=== PATIENT | male | born 1990 | race Two or more races ===

== ENCOUNTER 2024-03-18 18:10 | Inpatient (IN) | payer MEDICAID, OTHER ==
[~2024-03-18] VITALS: Ht 172.7 cm; Wt 75.7 kg
[2024-03-18 18:51] LABS: Urine Bacteria None Seen /hpf (None Seen)
[2024-03-18 19:00] LABS: Basophils # (auto) 0 10 ^3/uL (0-0.2); Basophils % (auto) 0.3 % (0.0-2.0); Eosinophils # (auto) 0 10 ^3/uL (0-0.8); Eosinophils % (auto) 0.6 % (0.0-7.0); Lymphocytes # (auto) 0.7 10 ^3/uL (0.4-5.4); Lymphocytes % (auto) 17.5 % (10.0-50.0); Mean Corpuscular Hemoglobin 30.5 pg (28.0-32.0); Mean Corpuscular Hgb Conc. 35.7 g/dL (32.0-36.0); Mean Corpuscular Volume 85.7 fL (80.0-100.0); Monocytes # (auto) 0.5 10 ^3/uL (0-1.3); Neutrophils # (auto) 2.7 10 ^3/uL (1.6-8.6); Neutrophils % (auto) 68.6 % (37.0-80.0); Nucleated Red Blood Cells % 0.2 %; Platelet Count (auto) 236 10^3/uL (140-450); Red Blood Cells 3.27 10^6/uL (4.5-5.90); Red Cell Distribution Width 14.7 % (11.8-14.3)
[2024-03-18 19:07] LABS: Urine Blood Negative /uL (Negative); Urine Clarity Turbid (Clear); Urine Color Yellow (Yellow); Urine Hyaline Cast MOD /lpf (0 - 2); Urine Mucus FEW (None Seen); Urine Protein, UAD 1+ (Negative); Urine Specific Gravity 1.023 (1.001-1.035); Urine Urobilinogen Normal (Negative); Urine WBC 23 /hpf (0 - 3)
[2024-03-18 19:36] LABS: Amphetamine Screen, Urine Neg (NEGATIVE); Barbiturate Scree,Urine Neg (NEGATIVE); Benzodiazephine Screen, Urine Neg (NEGATIVE); Cocaine Screen, Urine Neg (NEGATIVE)
[2024-03-18 19:37] LABS: Cannabinoid Screen, Urine Neg (NEGATIVE); Opiate Scree,Urine Neg (NEGATIVE); Phencyclidine Screen, Urine Neg (NEGATIVE)
[2024-03-18 19:38] LABS: Alanine Aminotransferase 56 U/L (7-40); Albumin 2.7 g/dL (3.2-4.8); Alkaline Phosphatase 83 U/L (46-116); Anion Gap 7 (5-15); Aspartate Aminotransferase 67 U/L (13-40); BUN/Creatinine Ratio 7.8 (10.0-20.0); Blood Urea Nitrogen 6 mg/dL (9-23); Calcium 7.1 mg/dL (8.7-10.4); Carbon Dioxide 28 mmol/L (20-31); Chloride 108 mmol/L (98-107); Glucose 82 mg/dL (74-106); Potassium 2.6 mmol/L (3.5-5.1); Sodium 143 mmol/L (136-145)
[2024-03-18 19:39] LABS: Bilirubin, Total 0.3 mg/dL (0.2-1.0); Total Protein 4.4 g/dL (5.7-8.2)
[2024-03-18 22:10] VITALS: RESP 12
[2024-03-19 00:01] VITALS: PULSE 98; RESP 15; O2SAT 96
[2024-03-19] MEDS: POTASSIUM CHL 20MEQ/100ML 100 ML IV SCH (00:39)
[2024-03-19] MEDS: SODIUM CHLORIDE 0.9% 1,000 ML IV SCH (04:55)
[2024-03-19] MEDS: metroNIDAZOLE 500MG/100ML 100 ML IV ONE (05:17)
[2024-03-19] MEDS: cefTRIAXone 1GM/50ML D5W 50 ML IV ONE (05:17)
[2024-03-19] MEDS: ONDANSETRON HCL 4 MG/2 ML VIAL IV PRN (05:18)
[2024-03-19] MEDS: PANTOPRAZOLE 40 MG/10 ML VIAL INJ IV ONE (05:18)
[2024-03-19 05:30] LABS: Alanine Aminotransferase 52 U/L (7-40); Albumin 2.5 g/dL (3.2-4.8); Alkaline Phosphatase 84 U/L (46-116); Anion Gap 3 (5-15); Aspartate Aminotransferase 62 U/L (13-40); Calcium 6.6 mg/dL (8.7-10.4); Carbon Dioxide 26 mmol/L (20-31); Chloride 111 mmol/L (98-107); Glucose 86 mg/dL (74-106); Potassium 2.8 mmol/L (3.5-5.1); Sodium 140 mmol/L (136-145)
[2024-03-19 05:31] LABS: Bilirubin, Total 0.3 mg/dL (0.2-1.0); Total Protein 4.2 g/dL (5.7-8.2)
[2024-03-19 05:46] LABS: BUN/Creatinine Ratio 7.7 (10.0-20.0); Blood Urea Nitrogen < 5 mg/dL (9-23)
[2024-03-19 05:47] LABS: Magnesium 0.9 mg/dL (1.6-2.6)
[2024-03-19] MEDS: MAGNESIUM SULFATE 1GM/100ML 100 ML IV SCH (06:10)
[2024-03-19] MEDS ORDERED: OMNIPAQUE 12mg/ml 500ml ORAL SOLUTION PO ONE (07:26)
[2024-03-19 07:30] VITALS: RESP 19; O2SAT 99
[2024-03-19] MEDS: POTASSIUM CHLORIDE 60 MEQ, LIDOCAINE 1% (LOCAL ANESTH.) 6 ML in SODIUM CHL 0.9% 500 ML IV ONE (07:59)
[2024-03-19 10:19] LABS: Basophils # (auto) 0 10 ^3/uL (0-0.2); Basophils % (auto) 0.3 % (0.0-2.0); Eosinophils # (auto) 0.1 10 ^3/uL (0-0.8); Eosinophils % (auto) 1.7 % (0.0-7.0); Hematocrit 35.6 % (41.0-53.0); Hemoglobin 12.2 g/dL (13.5-17.5); Lymphocytes # (auto) 0.7 10 ^3/uL (0.4-5.4); Lymphocytes % (auto) 16.9 % (10.0-50.0); Mean Corpuscular Hemoglobin 30.3 pg (28.0-32.0); Mean Corpuscular Hgb Conc. 34.3 g/dL (32.0-36.0); Mean Corpuscular Volume 88.4 fL (80.0-100.0); Monocytes # (auto) 0.6 10 ^3/uL (0-1.3); Monocytes % (auto) 13.1 % (0.0-12.0); Neutrophils # (auto) 2.9 10 ^3/uL (1.6-8.6); Nucleated Red Blood Cells % 0.2 %; Platelet Count (auto) 269 10^3/uL (140-450); Red Blood Cells 4.03 10^6/uL (4.5-5.90); Red Cell Distribution Width 14.9 % (11.8-14.3); White Blood Cell 4.3 10^3/uL (4.4-10.8)
[2024-03-19 10:33] LABS: Alanine Aminotransferase 62 U/L (7-40); Alkaline Phosphatase 96 U/L (46-116); Anion Gap 5 (5-15); Aspartate Aminotransferase 77 U/L (13-40); Bilirubin, Total 0.4 mg/dL (0.2-1.0); Calcium 7.2 mg/dL (8.7-10.4); Carbon Dioxide 25 mmol/L (20-31); Chloride 109 mmol/L (98-107); Glucose 84 mg/dL (74-106); Sodium 139 mmol/L (136-145); Total Protein 5.2 g/dL (5.7-8.2)
[2024-03-19 10:49] LABS: BUN/Creatinine Ratio 7.5 (10.0-20.0); Blood Urea Nitrogen < 5 mg/dL (9-23)
[2024-03-19] MEDS: metroNIDAZOLE 500MG/100ML 100 ML IV SCH (13:14)
[2024-03-19] MEDS: POTASSIUM EFFERVESENT TAB 25 MEQ PO ONE (14:00)
[2024-03-19 17:25] LABS: COVID19 ANTIGEN SOFIA FIA NEGATIVE (NEGATIVE)
[2024-03-19 18:34] VITALS: PULSE 110; RESP 18; O2SAT 98
[2024-03-19 19:30] VITALS: PULSE 100
[2024-03-19 21:45] VITALS: BP 131/97; PULSE 100; RESP 15; TEMP 99.6; O2SAT 97
[2024-03-19 22:38] LABS: Basophils # (auto) 0 10 ^3/uL (0-0.2); Basophils % (auto) 0.4 % (0.0-2.0); Eosinophils # (auto) 0.1 10 ^3/uL (0-0.8); Eosinophils % (auto) 1.7 % (0.0-7.0); Hematocrit 28.7 % (41.0-53.0); Lymphocytes # (auto) 0.6 10 ^3/uL (0.4-5.4); Mean Corpuscular Hemoglobin 30.1 pg (28.0-32.0); Mean Corpuscular Hgb Conc. 34.7 g/dL (32.0-36.0); Mean Corpuscular Volume 86.7 fL (80.0-100.0); Monocytes # (auto) 0.5 10 ^3/uL (0-1.3); Monocytes % (auto) 14.1 % (0.0-12.0); Neutrophils # (auto) 2.5 10 ^3/uL (1.6-8.6); Neutrophils % (auto) 67.8 % (37.0-80.0); Nucleated Red Blood Cells % 0.1 %; Platelet Count (auto) 227 10^3/uL (140-450); Red Blood Cells 3.31 10^6/uL (4.5-5.90); Red Cell Distribution Width 14.9 % (11.8-14.3); White Blood Cell 3.7 10^3/uL (4.4-10.8)
[2024-03-19 22:52] LABS: Chloride 110 mmol/L (98-107); Potassium 3.2 mmol/L (3.5-5.1); Sodium 141 mmol/L (136-145)
[2024-03-19 22:53] LABS: Anion Gap 5 (5-15); Calcium 7.3 mg/dL (8.7-10.4); Carbon Dioxide 26 mmol/L (20-31)
[2024-03-19 22:58] LABS: Glucose 106 mg/dL (74-106)
[2024-03-19 22:59] LABS: BUN/Creatinine Ratio 7.7 (10.0-20.0); Blood Urea Nitrogen < 5 mg/dL (9-23)
[2024-03-20] VITALS (12 sets, daily range): BP systolic 94–135; BP diastolic 53–107; PULSE 95–121; RESP 14–19; TEMP 97.8–101; O2SAT 95–99
[2024-03-20] MEDS: POTASSIUM EFFERVESENT TAB 25 MEQ PO ONE (01:03)
[2024-03-20] MEDS: ACETAMINOPHEN 325 MG TAB PO ONE (05:00)
[2024-03-20 05:07] LABS: Basos 0 % (Not Estab.); Eos 2 % (Not Estab.); Eos (Absolute) 0.1 x10E3/uL (0.0-0.4); Hematocrit 34.8 % (37.5-51.0); Hemoglobin 11.8 g/dL (13.0-17.7); Immature Granulocytes (Abs) 0 x10E3/uL (0.0-0.1); Lymphs 19 % (Not Estab.); Lymphs (Absolute) 0.8 x10E3/uL (0.7-3.1); MCH 30.4 pg (26.6-33.0); MCHC 33.9 g/dL (31.5-35.7); MCV 90 fL (79-97); Monocytes 11 % (Not Estab.); Monocytes (Absolute) 0.5 x10E3/uL (0.1-0.9); Neutrophils 67 % (Not Estab.); Neutrophils (Absolute) 2.9 x10E3/uL (1.4-7.0); Platelets 244 x10E3/uL (150-450); RBC 3.88 x10E6/uL (4.14-5.80); RDW 14.7 % (11.6-15.4); WBC 4.3 x10E3/uL (3.4-10.8)
[2024-03-20] MEDS: cefTRIAXone 1GM/50ML D5W 50 ML IV SCH (05:21)
[2024-03-20 09:07] LABS: % CD 4 Pos Lymph 8.5 % (30.8-58.5); % CD 8 Pos Lymph 60.3 % (12.0-35.5); Absolute CD 4 Helper 68 /uL (359-1519); CD4/CD8 Ratio 0.14 (0.92-3.72)
[2024-03-20] MEDS: CALCIUM W/VIT D (600MG/400IU) TAB PO SCH (10:25)
[2024-03-20] MEDS: PANTOPRAZOLE 40 MG/10 ML VIAL INJ IV SCH (10:25)
[2024-03-20 11:56] LABS: Basophils # (auto) 0 10 ^3/uL (0-0.2); Basophils % (auto) 0.2 % (0.0-2.0); Eosinophils # (auto) 0 10 ^3/uL (0-0.8); Eosinophils % (auto) 1.2 % (0.0-7.0); Hematocrit 30.3 % (41.0-53.0); Hemoglobin 10.7 g/dL (13.5-17.5); Lymphocytes # (auto) 0.5 10 ^3/uL (0.4-5.4); Lymphocytes % (auto) 12.3 % (10.0-50.0); Mean Corpuscular Hemoglobin 30.9 pg (28.0-32.0); Mean Corpuscular Hgb Conc. 35.4 g/dL (32.0-36.0); Mean Corpuscular Volume 87.3 fL (80.0-100.0); Monocytes # (auto) 0.5 10 ^3/uL (0-1.3); Monocytes % (auto) 12.8 % (0.0-12.0); Neutrophils # (auto) 2.9 10 ^3/uL (1.6-8.6); Neutrophils % (auto) 73.5 % (37.0-80.0); Nucleated Red Blood Cells % 0.1 %; Platelet Count (auto) 236 10^3/uL (140-450); Red Blood Cells 3.47 10^6/uL (4.5-5.90); Red Cell Distribution Width 14.7 % (11.8-14.3); White Blood Cell 3.9 10^3/uL (4.4-10.8)
[2024-03-20 12:17] LABS: Alanine Aminotransferase 48 U/L (7-40); Albumin 2.5 g/dL (3.2-4.8); Alkaline Phosphatase 90 U/L (46-116); Anion Gap 4 (5-15); Aspartate Aminotransferase 52 U/L (13-40); Bilirubin, Total 0.3 mg/dL (0.2-1.0); Calcium 7.6 mg/dL (8.7-10.4); Carbon Dioxide 28 mmol/L (20-31); Chloride 108 mmol/L (98-107); Glucose 96 mg/dL (74-106); Magnesium 1.5 mg/dL (1.6-2.6); Potassium 3.5 mmol/L (3.5-5.1); Sodium 140 mmol/L (136-145); Total Protein 4.3 g/dL (5.7-8.2)
[2024-03-20 12:19] LABS: BUN/Creatinine Ratio 7.8 (10.0-20.0); Blood Urea Nitrogen < 5 mg/dL (9-23)
[2024-03-20] MEDS: SODIUM CHLORIDE 0.9% 500 ML IV ONE (16:38)
[2024-03-20] MEDS: HYDROcodone-ACET 5/325MG TAB PO PRN (18:00)
[2024-03-20] MEDS: MAGNESIUM OXIDE 400 MG TAB PO ONE (19:15)
[2024-03-21] MEDS: ACETAMINOPHEN 500 MG TAB PO PRN (04:45)
[2024-03-21 05:00] VITALS: BP 95/55; PULSE 113; RESP 17; TEMP 99; O2SAT 92
[2024-03-21 07:16] VITALS: PULSE 108
[2024-03-21 08:15] VITALS: BP 108/77; PULSE 108; RESP 18; TEMP 98.7; O2SAT 96
[2024-03-21] MEDS: MAGNESIUM OXIDE 400 MG TAB PO SCH (09:44)
[2024-03-21 10:35] LABS: Basophils # (auto) 0 10 ^3/uL (0-0.2); Basophils % (auto) 0.2 % (0.0-2.0); Eosinophils # (auto) 0 10 ^3/uL (0-0.8); Eosinophils % (auto) 0.3 % (0.0-7.0); Hematocrit 32.8 % (41.0-53.0); Hemoglobin 11.3 g/dL (13.5-17.5); Lymphocytes # (auto) 0.3 10 ^3/uL (0.4-5.4); Lymphocytes % (auto) 8.6 % (10.0-50.0); Mean Corpuscular Hemoglobin 30.2 pg (28.0-32.0); Mean Corpuscular Hgb Conc. 34.4 g/dL (32.0-36.0); Mean Corpuscular Volume 87.9 fL (80.0-100.0); Monocytes # (auto) 0.5 10 ^3/uL (0-1.3); Monocytes % (auto) 13.4 % (0.0-12.0); Neutrophils # (auto) 3.1 10 ^3/uL (1.6-8.6); Neutrophils % (auto) 77.5 % (37.0-80.0); Nucleated Red Blood Cells % 0.1 %; Platelet Count (auto) 249 10^3/uL (140-450); Red Blood Cells 3.73 10^6/uL (4.5-5.90); Red Cell Distribution Width 15.3 % (11.8-14.3)
[2024-03-21 11:05] LABS: Alanine Aminotransferase 83 U/L (7-40); Albumin 2.7 g/dL (3.2-4.8); Alkaline Phosphatase 95 U/L (46-116); Anion Gap 5 (5-15); Aspartate Aminotransferase 94 U/L (13-40); Bilirubin, Total 0.3 mg/dL (0.2-1.0); Calcium 7.4 mg/dL (8.7-10.4); Carbon Dioxide 30 mmol/L (20-31); Chloride 102 mmol/L (98-107); Glucose 95 mg/dL (74-106); Potassium 3.1 mmol/L (3.5-5.1); Sodium 137 mmol/L (136-145); Total Protein 4.7 g/dL (5.7-8.2)
[2024-03-21 11:08] LABS: Blood Urea Nitrogen < 5 mg/dL (9-23)
[2024-03-21 12:20] VITALS: BP 89/56; PULSE 105; RESP 18; TEMP 99.8; O2SAT 97
[2024-03-21] MEDS ORDERED: SULFAMETH-TRIMETH 80/16MG-ML 10 ML in D5W 5% 250 ML IV SCH (22:00)
[2024-03-22 08:26] LABS: Hepatitis B Surface Antibody Positive (Negative)
[2024-03-22 09:01] LABS: Hepatitis C Antibody Negative (Negative)
[2024-03-23 14:06] LABS: QuantiFERON-TB Gold Plus Negative (Negative)
== END 2024-03-21 14:51 | disposition left against medical advice (07) | DRG 892 ==
LOC: EDBD 18:10 → ER 18:10 → TELE 23:20 → TELE-E-ADS 03-19 18:04 → EAST 03-20 18:49 → TELE-EAST 03-20 22:12
PROVIDERS: ADMIT Internal Medicine Geriatric Medicine; ATTEND Emergency Medicine
DX: B20 Human immunodeficiency virus [HIV] disease (principal); A41.9 Sepsis, unspecified organism; E46 Unspecified protein-calorie malnutrition; E87.6 Hypokalemia; E83.42 Hypomagnesemia; N30.00 Acute cystitis without hematuria; Z20.822 Contact with and (suspected) exposure to COVID-19; K52.9 Noninfective gastroenteritis and colitis, unspecified; K62.0 Anal polyp; Z91.199 Patient's noncompliance with other medical treatment and regimen due to unspecified reason; Z68.25 Body mass index [BMI] 25.0-25.9, adult; Z91.148 Patient's other noncompliance with medication regimen for other reason; Z83.3 Family history of diabetes mellitus
CPT/HCPCS: 36415; 70450; 71045; 74176; 80048; 80053; 80307; 81001; 82270; 82607; 83735; 83986; 84443; 84484; 85025; 85048; 86360; 86592; 86703; 86706; 86803; 87040; 87045; 87389; 87426; 87427; 87493; 87536; 93005; G0378; J2001; J2405; J2470; J3480; J3490; J7060

== ENCOUNTER 2024-04-13 08:42 | Emergency (ER) | payer MEDICAID ==
[~2024-04-13] VITALS: Ht 167.6 cm; Wt 53.2 kg
[2024-04-13 09:21] VITALS: BP 116/79; PULSE 103; RESP 18; TEMP 97.7; O2SAT 98
[2024-04-13] MEDS: ONDANSETRON ODT 4 MG TAB PO ONE (09:30)
[2024-04-13] MEDS: MAALOX PLUS or MAALOX 30 ML PO ONE (09:30)
[2024-04-13 09:51] LABS: Basophils # (auto) 0 10 ^3/uL (0-0.2); Basophils % (auto) 0.3 % (0.0-2.0); Eosinophils # (auto) 0.1 10 ^3/uL (0-0.8); Eosinophils % (auto) 2.6 % (0.0-7.0); Hematocrit 37.4 % (41.0-53.0); Hemoglobin 12.9 g/dL (13.5-17.5); Lymphocytes # (auto) 1.3 10 ^3/uL (0.4-5.4); Lymphocytes % (auto) 28.5 % (10.0-50.0); Mean Corpuscular Hemoglobin 31.5 pg (28.0-32.0); Mean Corpuscular Hgb Conc. 34.4 g/dL (32.0-36.0); Mean Corpuscular Volume 91.5 fL (80.0-100.0); Monocytes # (auto) 0.4 10 ^3/uL (0-1.3); Monocytes % (auto) 8.3 % (0.0-12.0); Neutrophils # (auto) 2.8 10 ^3/uL (1.6-8.6); Neutrophils % (auto) 60.3 % (37.0-80.0); Nucleated Red Blood Cells % 0.1 %; Platelet Count (auto) 356 10^3/uL (140-450); Red Blood Cells 4.09 10^6/uL (4.5-5.90); Red Cell Distribution Width 16.8 % (11.8-14.3); White Blood Cell 4.7 10^3/uL (4.4-10.8)
[2024-04-13 10:03] LABS: Alanine Aminotransferase 77 U/L (7-40); Albumin 4.2 g/dL (3.2-4.8); Alkaline Phosphatase 106 U/L (46-116); Anion Gap 3 (5-15); Aspartate Aminotransferase 43 U/L (13-40); BUN/Creatinine Ratio 15.4 (10.0-20.0); Blood Urea Nitrogen 12 mg/dL (9-23); Calcium 9.2 mg/dL (8.7-10.4); Carbon Dioxide 26 mmol/L (20-31); Chloride 112 mmol/L (98-107); Glucose 91 mg/dL (74-106); Potassium 4.3 mmol/L (3.5-5.1); Sodium 141 mmol/L (136-145)
[2024-04-13 10:04] LABS: Bilirubin, Total 0.3 mg/dL (0.2-1.0); Total Protein 7.5 g/dL (5.7-8.2)
[2024-04-14 07:07] LABS: Basos 0 % (Not Estab.); Eos 3 % (Not Estab.); Eos (Absolute) 0.2 x10E3/uL (0.0-0.4); Hematocrit 39.5 % (37.5-51.0); Hemoglobin 12.8 g/dL (13.0-17.7); Immature Granulocytes (Abs) 0 x10E3/uL (0.0-0.1); Lymphs 29 % (Not Estab.); Lymphs (Absolute) 1.4 x10E3/uL (0.7-3.1); MCH 30.8 pg (26.6-33.0); MCHC 32.4 g/dL (31.5-35.7); MCV 95 fL (79-97); Monocytes 9 % (Not Estab.); Monocytes (Absolute) 0.4 x10E3/uL (0.1-0.9); Neutrophils 59 % (Not Estab.); Neutrophils (Absolute) 2.8 x10E3/uL (1.4-7.0); Platelets 380 x10E3/uL (150-450); RBC 4.16 x10E6/uL (4.14-5.80); RDW 15.3 % (11.6-15.4); WBC 4.8 x10E3/uL (3.4-10.8)
[2024-04-14 12:06] LABS: % CD 4 Pos Lymph 1.5 % (30.8-58.5); % CD 8 Pos Lymph 71.4 % (12.0-35.5); Absolute CD 4 Helper 21 /uL (359-1519); CD4/CD8 Ratio 0.02 (0.92-3.72)
== END 2024-04-13 12:55 | disposition home or self-care (01) ==
LOC: ER 08:42
DX: R19.7 Diarrhea, unspecified (principal); R51.9 Headache, unspecified; R55 Syncope and collapse; Z79.899 Other long term (current) drug therapy; Z79.01 Long term (current) use of anticoagulants; Z21 Asymptomatic human immunodeficiency virus [HIV] infection status
CPT/HCPCS: 36415; 80053; 85025; 86360; 99283; Q0162

== ENCOUNTER 2024-05-11 08:46 | Emergency (ER) | payer MEDICAID ==
[~2024-05-11] VITALS: Ht 170.2 cm; Wt 54.4 kg
[2024-05-11 09:07] VITALS: BP 109/81; PULSE 104; RESP 16; O2SAT 98
== END 2024-05-11 11:01 | disposition left against medical advice (07) ==
LOC: ER 08:46
DX: R10.13 Epigastric pain (principal); R11.2 Nausea with vomiting, unspecified; R19.7 Diarrhea, unspecified; Z53.21 Procedure and treatment not carried out due to patient leaving prior to being seen by health care provider

== ENCOUNTER 2024-06-30 08:45 | Emergency (ER) | payer MEDICAID, OTHER ==
[~2024-06-30] VITALS: Ht 170.2 cm; Wt 75.0 kg
[2024-06-30 08:56] VITALS: BP 109/78; PULSE 107; RESP 20; O2SAT 100
[2024-07-01] MEDS ORDERED: CEPH500C PO (00:32)
[2024-07-01] MEDS ORDERED: IBUP-1455 PO (00:32)
[2024-07-01] MEDS ORDERED: HYDR-4902 PO (00:32)
== END 2024-06-30 11:34 | disposition left against medical advice (07) ==
LOC: ER 08:45
DX: M25.551 Pain in right hip (principal); Z53.21 Procedure and treatment not carried out due to patient leaving prior to being seen by health care provider

== ENCOUNTER 2024-06-30 20:04 | Emergency (ER) | payer OTHER ==
[~2024-06-30] VITALS: Ht 170.2 cm; Wt 59.0 kg
--- NOTE | 2024-07-01 00:28 | ED.PDOC ---
History of Present Illness HPI Comments 34 year old male presents to the ED with a chief complaint of wound check onset today. Patient states he had a R hip surgery in [place] 3 days ago and left AMA without any medication. Patient states he is currently experiencing pain and is concerned for possible infection. Past medical history of HIV. Denies fever, chest pain, shortness of breath, edema, wound discharge, nausea, vomiting, diarrhea, chills. No other symptoms or modifying factors present at this time. Chief Complaint: Wound Check Time Seen by MD: 00:18 Primary Care Provider: KAREL Reviewed Notes: Nurses Notes, Medications, Allergies Allergies: Coded Allergies: NO KNOWN ALLERGIES (Unverified , 03/18/24) Home Meds Active Scripts Cephalexin Monohydrate (Cephalexin) 500 Mg Cap, 1 CAP PO TID for 10 Days, #30 CAP Prov:ZOE BRAXTON MD 07/01/24 Hydrocodone-Acetaminophen (Hydrocodone Bitartrate/AC 5-325 mg) 1 Tab Tab, 1 TAB PO Q6HP PRN, #30 TAB prn pain Prov:ZOE BRAXTON MD 07/01/24 Ibuprofen Micronized (Ibuprofen) 800 Mg Tab, 800 MG PO Q8HPRN PRN, #30 TAB prn pain Prov:ZOE BRAXTON MD 07/01/24 Information Source: Patient Mode of Arrival: Ambulatory Severity: Moderate Timing: Days Duration: Since onset Prehospital treatment: None Past Medical History PAST MEDICAL HISTORY: HIV Surgical History: Denies all surgeries Family History Family History: Reviewed,noncontributory to illness Social History Smoker: Non-Smoker Alcohol: Denies ETOH Use Drugs: Denies Drug Use Lives In: Home Constitutional: denies: chills, diaphoresis, fatigue, fever, malaise, sweats, weakness, others EENTM: denies: blurred vision, double vision, ear bleeding, ear discharge, ear drainage, ear pain, ear ringing, eye pain, eye redness, hearing loss, mouth pain, mouth swelling, nasal discharge, nose bleeding, nose congestion, nose pain, photophobia, tearing, throat pain, throat swelling, voice changes, others Respiratory: denies: cough, hemoptysis, orthopnea, SOB at rest, shortness of breath, SOB with excertion, stridor, wheezing, others Cardiovascular: denies: chest pain, dizzy spells, diaphoresis, Dyspnea on exertion, edema, irregular heart beat, left arm pain, lightheadedness, palpitations, PND, syncope, others Gastrointestinal: denies: abdomen distended, abdominal pain, blood streaked bowels, constipated, diarrhea, dysphagia, difficulty swallowing, hematemesis, melena, nausea, poor appetite, poor fluid intake, rectal bleeding, rectal pain, vomiting, others Genitourinary: denies: burning, dysuria, flank pain, frequency, hematuria, incontinence, penile discharge, penile sore, pain, testicle pain, testicle swelling, urgency, others Neurological: denies: dizziness, fainting, headache, left sided numbness, left sided weakness, numbness, paresthesia, pre-existing deficit, right sided numbness, right sided weakness, seizure, speech problems, tingling, tremors, weakness, others Musculoskeletal: reports: others (LT hip pain ); denies: back pain, gout, joint pain, joint swelling, muscle pain, muscle stiffness, neck pain Integumetry: denies: bruises, change in color, change in hair/nails, dryness, laceration, lesions, lumps, rash, wounds, others Allergic/Immunocompromised: denies: Difficulty Healing, Frequent Infections, Hives, Itching, others Hematologic/Lymphatic: denies: anemia, blood clots, easy bleeding, easy bruising, swollen glands, others Endocrine: denies: excessive hunger, excessive sweating, excessive thirst, excessive urination, flushing, intolerance to cold, intolerance to heat, unexplained weight gain, unexplained weight loss, others Psychiatric: denies: anxiety, bipolar disorder, depression, hopeless, panic disorder, schizophrenia, sleepless, suicidal, others All Other Systems: Reviewed and Negative Physical Exam General Appearance: No Apparent Distress HEENT: Other (unremarkable) Neck: Full Range of Motion, Normal Inspection Respiratory: Lungs Clear, No Accessory Muscle Use, No Respiratory Distress, Normal Breath Sounds Cardiovascular: No Edema, No JVD, Regular Rate/Rhythm Breast Exam: Deferred Gastrointestinal: Non Tender, Soft Genitalia: Deferred Pelvic: Deferred Rectal: Deferred Extremities: Normal inspection, Normal range of motion, No pedal edema, Other (Painful range of motion right hip. No edema.) Neurologic: Alert (Oriented x4), Normal Affect, Normal Mood, Other (Moves all extremities. No gross focal deficit.) Cerebellar Function: NOT DONE Reflexes: NOT DONE Skin: Dry, Normal Color, Warm, Other (Right hip surgical wound site with heidi in place minimal erythema at proximal wound edge staple insertion site without edema, tenderness or discharge.) Lymphatic: NOT DONE Was a procedure done? Was a procedure done?: No Differential Dx Considerations may include: Uncomplicated postoperative pain, hardware displacement or infection, wound site infection, among others X-Ray, Labs, Meds, VS Vital Signs Date Time Temp Pulse Resp B/P (MAP) Pulse Ox O2 Delivery O2 Flow Rate FiO2 07/01/24 03:04 97 18 99 Room Air* 0 21 07/01/24 03:04 98.5 97 18 110/61 (77) 99 98.5 06/30/24 20:37 97.9 102 18 119/68 (85) 100 Current Medications Medications (Trade) Dose Ordered Sig/Iveth Route Start Time Stop Time Status Last Admin Ketorolac Tromethamine (Toradol Injection) 60 mg ONCE ONCE IM 07/01/24 00:30 07/01/24 00:31 DC 07/01/24 03:10 Acetaminophen/ Hydrocodone Bitart ([place] 5/325MG Tab) 2 tab ONCE ONCE PO 07/01/24 00:30 07/01/24 00:31 DC 07/01/24 03:10 PROCEDURE(s): RHIP - R HIP COMPLETE XRAY REASON: pain s/p hip surg 3 d ago ORDER NUMBER(s): [id number], ACCESSION NUMBER(s): [id number] CLINICAL INDICATION: pain s/p hip surg 3 d ago TECHNIQUE: 3 views of the right hip. Comparison: None FINDINGS/IMPRESSION: 2 transfixing screws are transfixing a right femoral neck fracture. No gross evidence of hardware complication. No additional fracture or dislocation. Soft tissues are unremarkable. X-Ray, Labs, Meds, VS Comment 34-year-old male with a history of HIV presenting complaining of right hip pain 3 days after right hip ORIF at another facility from which he left AMA. Vitals remarkable for heart rate 102 Exam remarkable for painful range of motion of the right hip. The right hip wound site appears clean, dry and intact. Minimal erythema at proximal wound edge at staple insertion site, without edema, discharge or tenderness. Right hip x-rays: FINDINGS/IMPRESSION: 2 transfixing screws are transfixing a right femoral neck fracture. No gross evidence of hardware complication. No additional fracture or dislocation. Soft tissues are unremarkable. Patient treated with the following in the ED: Toradol 60 mg IM, Austin 5/325 mg p.o.. On re-evaluation, patient states pain has improved. Vitals are stable. Right lower extremity is neurovascularly intact. Patient provided with crutches and crutch training. Advised to follow-up with the orthopedist who performed his surgery. Since the patient left AMA, he states he was not prescribed any medications. I will cover him with oral antibiotics since he has HIV and might be at risk for postoperative infection, although I do not feel he currently has evidence of infection at this time. Rx ibuprofen, Austin, Keflex Time of 1ST Reevaluation: 00:48 Reevaluation 1ST: Unchanged Patient Education/Counseling: Diagnosis, Treatment, Prognosis, Need For Follow Up Family Education/Counseling: No Family Present Departure 1 Departure Time of Disposition: 01:06 Impression: Primary Impression: Postoperative pain Disposition: 01 HOME / SELF CARE / HOMELESS Condition: Stable Additional Instructions: Your x-rays showed that your surgical hardware is in place. I have prescribed antibiotics to prevent infection, as well as pain medication. Follow-up with the orthopedist who performed your surgery in 2-3 days. e-Prescriptions Cephalexin Monohydrate (Cephalexin) 500 Mg Cap 1 CAP PO TID for 10 Days, #30 CAP Prov: ZOE BRAXTON MD 07/01/24 Hydrocodone-Acetaminophen (Hydrocodone Bitartrate/AC 5-325 mg) 1 Tab Tab 1 TAB PO Q6HP PRN, #30 TAB prn pain Prov: ZOE BRAXTON MD 07/01/24 Ibuprofen Micronized (Ibuprofen) 800 Mg Tab 800 MG PO Q8HPRN PRN, #30 TAB prn pain Prov: ZOE BRAXTON MD 07/01/24 Discharged With: Relative (Mother) Critical Care Note Critical Care Time?: No Stability Stability form required: No Heart Score Heart Score: Heart Score Response (Comments) Value History N/A 0 EKG N/A 0 Age N/A 0 Risk Factors N/A 0 Troponin N/A 0 Total 0 I personally scribed for ZOE BRAXTON MD ([email or web address]) on 07/01/24 at 00:28. Electronically submitted by Jessica Levy ([email or web address]). ZOE BRAXTON MD Jul 01, 2024 00:28
[2024-07-01] MEDS ORDERED: HYDR-4902 PO (00:32)
[2024-07-01] MEDS ORDERED: IBUP-1455 PO (00:32)
[2024-07-01] MEDS ORDERED: CEPH500C PO (00:32)
--- NOTE | 2024-07-01 00:51 | DVH ---
CLINICAL INDICATION: pain s/p hip surg 3 d ago TECHNIQUE: 3 views of the right hip. Comparison: None FINDINGS/IMPRESSION: 2 transfixing screws are transfixing a right femoral neck fracture. No gross evidence of hardware com plication. No additional fracture or dislocation. Soft tissues are unremarkable.
[2024-07-01 03:04] VITALS: BP 110/61; PULSE 97; RESP 18; TEMP 98.5; O2SAT 99
[2024-07-01] MEDS: HYDROcodone-ACET 5/325MG TAB PO ONE (03:10)
[2024-07-01] MEDS: KETOROLAC TROMETH 60MG/2ML VIAL IM ONE (03:10)
== END 2024-07-01 03:19 | disposition home or self-care (01) ==
LOC: ER 20:04
DX: G89.18 Other acute postprocedural pain (principal); M25.551 Pain in right hip; Z79.899 Other long term (current) drug therapy
CPT/HCPCS: 73502; 96372; 99283; J1885

== ENCOUNTER 2024-09-20 14:20 | Emergency (ER) | payer OTHER ==
[~2024-09-20] VITALS: Ht 170.2 cm; Wt 55.5 kg
[~2024-09-20 14:20] MED LIST: CEPH500C PO; HYDR-4902 PO; IBUP-1455 PO
[2024-09-20 14:35] VITALS: BP 132/84; PULSE 97; RESP 18; TEMP 98; O2SAT 97
--- NOTE | 2024-09-20 14:39 | ED.PDOC ---
GI ASSESSMENT HPI Comments 34 y.o male presents to the ED for a chief complaint of one episode of diarrhea yesterday. Patient describes stool as loose and brown in coloration. Patient denies any abdominal pain, fever, chills, nausea or vomiting. Patient reports previous similar incident in which he was diagnosed with an abdominal infection. Patient's last visit at this ED was on 06/2024 for hip replacement re evaluation. Patient had breakfast this morning. Patient had no episodes of diarrhea or nausea or vomiting since that one episode last night. Patient is homeless. Vitals: BP: 132/84 HR: 97 Temp: 98 F SPO2: 97% RA RR: 18 Past medical history: HIV Past surgical history: HIP replacement Allergies: Denies HPI: Poor Historian. REVIEW OF SYSTEMS: CONSTITUTIONAL: Denies acute: fever, diaphoresis, chills, generalized weakness. HEAD: Denies acute: headache, photophobia Eyes: Denies acute: Double vision, vision loss, eye pain, eye discharge. EARS: Denies acute: tinnitus, hearing loss, ear discharge, ear pain, THROAT: Denies acute: sore throat, swelling, difficulty swallowing , pain with swallowing, change in voice. NECK: Denies acute: neck pain, neck swelling, stiff neck. HEART: Denies acute : chest pain, palpitations, LUNGS: Denies acute: SOB, wheezing, cough, hemoptysis ABDOMEN: Denies acute: abdominal pain, Nausea, Vomiting, melena , hematemesis, hematochezia SKIN: Denies acute: rash, redness, lesions, itchiness. EXTREMITIES: Denies acute: calf pain, numbness, tingling, weakness, denies pain in extremity. Denies acute: Low back pain. Neuro: Denies acute: focal neurological deficit, motor or sensory focal neurological deficit, tremors, seizure like activity, confusion, dizziness, change in mental status, loss of bowel or bladder function, cauda equina like symptoms. : Denies acute: dysuria, hematuria, flank pain, increase in urinary frequency. PSYCH: Denies acute: hallucination, suicidal ideation, homicidal ideation. PHYSICAL EXAM: General: ---no-----acute distress, awake and alert. Head: normocephalic, atraumatic. Neck: supple, trachea is midline, no swelling. Throat: Normal phonation. Eyes:, no erythema, no purulent discharge, no proptosis, no icterus. Heart: regular rate, regular rhythm, no significant murmur appreciated. Lungs: no apparent respiratory distress, Able to speak in full sentences. No wheezing, no rhonchi, no crackles. No stridors Clear to auscultation bilaterally. Abdomen: non tender to palpation, non distended, soft, no guarding, no rebound, + bowel sounds. Neuro: Awake, Alert, oriented to name, self, situation, follows commands GCS=15. Speech is normal. Skin: no petechia, no purpura, no cyanosis, non-pale, not jaundice. Lower extremities: --no - Pitting edema no deformity, no focal swelling, no calf TTP. Makes eye contact. moves all four extremities. Face: no apparent facial droop. Ambulating in the ED independently. ED COURSE: Time Seen by MD: 14:30 Primary Care Provider: OOA Reviewed Notes: Nurses Notes, Allergies Allergies: Coded Allergies: NO KNOWN ALLERGIES (Unverified , 03/18/24) Home Meds Active Scripts Cephalexin Monohydrate (Cephalexin) 500 Mg Cap, 1 CAP PO TID for 10 Days, #30 CAP Prov:ZOE BRAXTON MD 07/01/24 Hydrocodone-Acetaminophen (Hydrocodone Bitartrate/AC 5-325 mg) 1 Tab Tab, 1 TAB PO Q6HP PRN, #30 TAB prn pain Prov:ZOE BRAXTON MD 07/01/24 Ibuprofen Micronized (Ibuprofen) 800 Mg Tab, 800 MG PO Q8HPRN PRN, #30 TAB prn pain Prov:ZOE BRAXTON MD 07/01/24 Information Source: Patient Past Medical History PAST MEDICAL HISTORY: HIV Surgical History: Denies all surgeries Family History Family History: Reviewed,noncontributory to illness Social History Smoker: Non-Smoker Alcohol: Denies ETOH Use Drugs: Denies Drug Use Lives In: Home Was a procedure done? Was a procedure done?: No GI differential Dx Differential Diagnosis: Diverticular disease, Electrolyte Imbalance, Food Poisoning, Viral X-Ray, Labs, Meds, VS Vital Signs Date Time Temp Pulse Resp B/P (MAP) Pulse Ox O2 Delivery O2 Flow Rate FiO2 09/20/24 14:35 98.0 97 18 132/84 (100) 97 98.0 Lab Test 09/20/24 16:01 Range/Units White Blood Count 4.3 L 4.4-10.8 10^3/uL Red Blood Count 3.99 L 4.5-5.90 10^6/uL Hemoglobin 11.4 L 13.5-17.5 g/dL Hematocrit 34.3 L 41.0-53.0 % Mean Corpuscular Volume 85.9 80.0-100.0 fL Mean Corpuscular Hemoglobin 28.5 28.0-32.0 pg Mean Corpuscular Hemoglobin Concent 33.1 32.0-36.0 g/dL Red Cell Distribution Width 16.6 H 11.8-14.3 % Platelet Count 361 140-450 10^3/uL Mean Platelet Volume 7.5 6.9-10.8 fL Neutrophils (%) (Auto) 58.0 37.0-80.0 % Lymphocytes (%) (Auto) 23.5 10.0-50.0 % Monocytes (%) (Auto) 9.6 0.0-12.0 % Eosinophils (%) (Auto) 8.6 H 0.0-7.0 % Basophils (%) (Auto) 0.3 0.0-2.0 % Neutrophils # (Auto) 2.5 1.6-8.6 10 ^3/uL Lymphocytes # (Auto) 1.0 0.4-5.4 10 ^3/uL Monocytes # (Auto) 0.4 0-1.3 10 ^3/uL Eosinophils # (Auto) 0.4 0-0.8 10 ^3/uL Basophils # (Auto) 0 0-0.2 10 ^3/uL Nucleated Red Blood Cells 0.0 % Sodium Level 142 136-145 mmol/L Potassium Level 3.9 3.5-5.1 mmol/L Chloride Level 111 H 98-107 mmol/L Carbon Dioxide Level 25 20-31 mmol/L Anion Gap 6 5-15 Blood Urea Nitrogen 20 9-23 mg/dL Creatinine 0.78 0.700-1.30 mg/dL Glomerular Filtration Rate Calc 122 >90 mL/min BUN/Creatinine Ratio 25.6 H 10.0-20.0 Serum Glucose 106 74-106 mg/dL Lactic Acid Level 1.9 0.4-2.0 mmol/L Calcium Level 8.9 8.7-10.4 mg/dL Total Bilirubin 0.3 0.2-1.0 mg/dL Aspartate Amino Transferase (AST) 63 H 13-40 U/L Alanine Aminotransferase (ALT) 88 H 7-40 U/L Alkaline Phosphatase 113 46-116 U/L Total Protein 7.4 5.7-8.2 g/dL Albumin 4.1 3.2-4.8 g/dL Microbiology Date/Time Source Procedure Growth Status 09/20/24 16:08 Stool Stool Culture - Preliminary Resulted 09/20/24 16:08 Stool Shiga Toxin I & II - Final Resulted Time of 1ST Reevaluation: 14:34 Reevaluation 1ST: Unchanged Patient Education/Counseling: Diagnosis, Treatment Family Education/Counseling: No Family Present Comments Patient eloped Patient presented with the above HPI.---diarrhea--workup was initiated. patient was found with the above mentioned diagnosis. the following medications were ordered: please refer to order lists of meds and tests obtained by myself Dr. May. Patient eloped All the reports of any imaging studies that were ordered by myself were reviewed by myself. Departure 1 Departure Time of Disposition: 20:24 Impression: Primary Impression: Diarrhea Additional Impression: Eloped from emergency department Disposition: 07 LEFT AWOL/ELOPED Condition: Other Additional Instructions: Patient eloped Discharged With: Other Critical Care Note Critical Care Time?: No I personally scribed for JOSEF MAY DO ([email or web address]) on 09/20/24 at 14:39. Electronically submitted by Nikki Mcneil ([email or web address]). I personally scribed for JOSEF MAY DO ([email or web address]) on 09/20/24 at 14:53. Electronically submitted by Nikki Mcneil ([employer]). JOSEF MAY DO Sep 20, 2024 14:39
[2024-09-20 16:24] LABS: Basophils # (auto) 0 10 ^3/uL (0-0.2); Basophils % (auto) 0.3 % (0.0-2.0); Eosinophils # (auto) 0.4 10 ^3/uL (0-0.8); Eosinophils % (auto) 8.6 % (0.0-7.0); Hematocrit 34.3 % (41.0-53.0); Hemoglobin 11.4 g/dL (13.5-17.5); Lymphocytes % (auto) 23.5 % (10.0-50.0); Mean Corpuscular Hemoglobin 28.5 pg (28.0-32.0); Mean Corpuscular Hgb Conc. 33.1 g/dL (32.0-36.0); Mean Corpuscular Volume 85.9 fL (80.0-100.0); Monocytes # (auto) 0.4 10 ^3/uL (0-1.3); Monocytes % (auto) 9.6 % (0.0-12.0); Neutrophils # (auto) 2.5 10 ^3/uL (1.6-8.6); Platelet Count (auto) 361 10^3/uL (140-450); Red Blood Cells 3.99 10^6/uL (4.5-5.90); Red Cell Distribution Width 16.6 % (11.8-14.3); White Blood Cell 4.3 10^3/uL (4.4-10.8)
[2024-09-20 16:33] LABS: Albumin 4.1 g/dL (3.2-4.8); Alkaline Phosphatase 113 U/L (46-116); Anion Gap 6 (5-15); BUN/Creatinine Ratio 25.6 (10.0-20.0); Blood Urea Nitrogen 20 mg/dL (9-23); Calcium 8.9 mg/dL (8.7-10.4); Carbon Dioxide 25 mmol/L (20-31); Glucose 106 mg/dL (74-106); Potassium 3.9 mmol/L (3.5-5.1); Sodium 142 mmol/L (136-145); Total Protein 7.4 g/dL (5.7-8.2)
[2024-09-20 16:36] LABS: Alanine Aminotransferase 88 U/L (7-40); Aspartate Aminotransferase 63 U/L (13-40); Bilirubin, Total 0.3 mg/dL (0.2-1.0); Chloride 111 mmol/L (98-107)
== END 2024-09-20 20:34 | disposition left against medical advice (07) ==
LOC: ER 14:20
DX: R19.7 Diarrhea, unspecified (principal); Z21 Asymptomatic human immunodeficiency virus [HIV] infection status
CPT/HCPCS: 36415; 80053; 83605; 85025; 87045; 87177; 87427

== ENCOUNTER 2024-10-17 11:00 | Emergency (ER) | payer OTHER ==
[~2024-10-17] VITALS: Ht 170.2 cm; Wt 82.0 kg
[2024-10-17 11:05] VITALS: TEMP 98.9
--- NOTE | 2024-10-17 11:11 | ED.PDOC ---
GI ASSESSMENT HPI Comments 34 year old male KELLY presents to the ED with chief complaint of N/V/D. Patient reports that he had eaten raw fish about an hour ago, soon after starting to experience nausea, vomiting, and diarrhea. Patient relays that he had 2 episodes of diarrhea prior to arrival. Patient states he is compliant with his HIV medication. Patient denies any abdominal pain, fever, chills, dizziness, or dysuria. Time Seen by MD: 11:05 Primary Care Provider: KAREL Reviewed Notes: Nurses Notes, Rock Picker Notes, Medications, Allergies Allergies: Coded Allergies: NO KNOWN ALLERGIES (Unverified , 03/18/24) Home Meds Active Scripts Cephalexin Monohydrate (Cephalexin) 500 Mg Cap, 1 CAP PO TID for 10 Days, #30 CAP Prov:ZOE BRAXTON MD 07/01/24 Hydrocodone-Acetaminophen (Hydrocodone Bitartrate/AC 5-325 mg) 1 Tab Tab, 1 TAB PO Q6HP PRN, #30 TAB prn pain Prov:ZOE BRAXTON MD 07/01/24 Ibuprofen Micronized (Ibuprofen) 800 Mg Tab, 800 MG PO Q8HPRN PRN, #30 TAB prn pain Prov:ZOE BRAXTON MD 07/01/24 Information Source: Patient, Emergency Med Personnel Mode of Arrival: EMS Timing: Hours Duration: Since onset Prehospital treatment: None Quality: None Vomitus: Watery Stool: Watery Severity: Moderate Recent: Possible spoiled food Recent Hx of: None Pain Location: None Modifying Factors: Nothing Associated sign and symptoms: Nausea, Vomiting, Diarrhea Past Medical History PAST MEDICAL HISTORY: HIV Surgical History (Other): Rt Hip Surgery Family History Family History: Reviewed,noncontributory to illness Social History Smoker: Non-Smoker Alcohol: Denies ETOH Use Drugs: Denies Drug Use Lives In: Home Constitutional: denies: chills, diaphoresis, fatigue, fever, malaise, sweats, weakness, others EENTM: denies: blurred vision, double vision, ear bleeding, ear discharge, ear drainage, ear pain, ear ringing, eye pain, eye redness, hearing loss, mouth pain, mouth swelling, nasal discharge, nose bleeding, nose congestion, nose pain, photophobia, tearing, throat pain, throat swelling, voice changes, others Respiratory: denies: cough, hemoptysis, orthopnea, SOB at rest, shortness of breath, SOB with excertion, stridor, wheezing, others Cardiovascular: denies: chest pain, dizzy spells, diaphoresis, Dyspnea on exertion, edema, irregular heart beat, left arm pain, lightheadedness, palpitations, PND, syncope, others Gastrointestinal: reports: diarrhea, nausea, vomiting; denies: abdomen distended, abdominal pain, blood streaked bowels, constipated, dysphagia, difficulty swallowing, hematemesis, melena, poor appetite, poor fluid intake, rectal bleeding, rectal pain, others Genitourinary: denies: burning, dysuria, flank pain, frequency, hematuria, incontinence, penile discharge, penile sore, pain, testicle pain, testicle swelling, urgency, others Neurological: denies: dizziness, fainting, headache, left sided numbness, left sided weakness, numbness, paresthesia, pre-existing deficit, right sided numbness, right sided weakness, seizure, speech problems, tingling, tremors, weakness, others Musculoskeletal: denies: back pain, gout, joint pain, joint swelling, muscle pain, muscle stiffness, neck pain, others Integumetry: denies: bruises, change in color, change in hair/nails, dryness, laceration, lesions, lumps, rash, wounds, others Allergic/Immunocompromised: denies: Difficulty Healing, Frequent Infections, Hives, Itching, others Hematologic/Lymphatic: denies: anemia, blood clots, easy bleeding, easy bruising, swollen glands, others Endocrine: denies: excessive hunger, excessive sweating, excessive thirst, excessive urination, flushing, intolerance to cold, intolerance to heat, unexplained weight gain, unexplained weight loss, others Psychiatric: denies: anxiety, bipolar disorder, depression, hopeless, panic disorder, schizophrenia, sleepless, suicidal, others All Other Systems: Reviewed and Negative Physical Exam General Appearance: No Apparent Distress, Normal HEENT: Normal ENT Inspection, Pharynx Normal, TMs Normal Neck: Full Range of Motion, Non-Tender, Normal, Normal Inspection Respiratory: Chest Non-Tender, Lungs Clear, No Accessory Muscle Use, No Respiratory Distress, Normal Breath Sounds Cardiovascular: No Edema, No JVD, No Murmur, No Gallop, Normal Peripheral Pulses, Regular Rate/Rhythm Breast Exam: Deferred Gastrointestinal: No Organomegaly, Non Tender, No Pulsatile Mass, Soft, Other (Decreased bowel sounds) Genitalia: Deferred Pelvic: Deferred Rectal: Deferred Extremities: No calf tenderness, Normal capillary refill, Normal inspection, Normal range of motion, Non-tender, No pedal edema Musculoskeletal : Apperance: Normal Neurologic: Alert, railway switch operator II-XII nml as Tested, No Motor Deficits, Normal Affect, Normal Mood, No Sensory Deficits Cerebellar Function: Normal Reflexes: Normal Skin: Dry, Normal Color, Warm Lymphatic: No Adenopathy Was a procedure done? Was a procedure done?: No GI differential Dx Differential Diagnosis: Gastroenteritis, Dehydration, Electrolyte Imbalance, Food Poisoning, Bacterial, Viral X-Ray, Labs, Meds, VS Vital Signs Date Time Temp Pulse Resp B/P (MAP) Pulse Ox O2 Delivery O2 Flow Rate FiO2 10/17/24 11:42 107 18 97 Room Air 10/17/24 11:42 107 18 139/112 (121) 97 10/17/24 11:41 Room Air* 0 21 10/17/24 11:05 98.9 98 16 122/84 (97) 100 98.9 Lab Test 10/17/24 11:36 Range/Units White Blood Count 8.3 4.4-10.8 10^3/uL Red Blood Count 4.84 4.5-5.90 10^6/uL Hemoglobin 13.8 13.5-17.5 g/dL Hematocrit 41.6 41.0-53.0 % Mean Corpuscular Volume 86.0 80.0-100.0 fL Mean Corpuscular Hemoglobin 28.5 28.0-32.0 pg Mean Corpuscular Hemoglobin Concent 33.2 32.0-36.0 g/dL Red Cell Distribution Width 17.5 H 11.8-14.3 % Platelet Count 484 H 140-450 10^3/uL Mean Platelet Volume 6.9 6.9-10.8 fL Neutrophils (%) (Auto) 37.0-80.0 % Lymphocytes (%) (Auto) 10.0-50.0 % Monocytes (%) (Auto) 0.0-12.0 % Eosinophils (%) (Auto) 0.0-7.0 % Basophils (%) (Auto) 0.0-2.0 % Neutrophils # (Auto) 1.6-8.6 10 ^3/uL Lymphocytes # (Auto) 0.4-5.4 10 ^3/uL Monocytes # (Auto) 0-1.3 10 ^3/uL Differential Total Cells Counted 100.0 100 Neutrophils % (Manual) 64 37.0-80.0 Band Neutrophils % (Manual) 0 Lymphocytes % (Manual) 21 10.0-50.0 Monocytes % (Manual) 4 0-12 Eosinophils % (Manual) 11 H 0-7 Basophils % (Manual) 0 0.0-2.0 Metamyelocytes % (manual) 0 Myelocytes % (Manual) 0 Promyelocytes % (Manual) 0 Blast Cells % (Manual) 0 Reactive Lymphocytes 0 Platelet Estimate Increased Sodium Level 138 136-145 mmol/L Potassium Level 3.8 3.5-5.1 mmol/L Chloride Level 104 98-107 mmol/L Carbon Dioxide Level 26 20-31 mmol/L Anion Gap 8 5-15 Blood Urea Nitrogen 22 9-23 mg/dL Creatinine 0.98 0.700-1.30 mg/dL Glomerular Filtration Rate Calc 105 >90 mL/min BUN/Creatinine Ratio 22.4 H 10.0-20.0 Serum Glucose 114 H 74-106 mg/dL Calcium Level 9.7 8.7-10.4 mg/dL Total Bilirubin 0.5 0.2-1.0 mg/dL Aspartate Amino Transferase (AST) 424 H 13-40 U/L Alanine Aminotransferase (ALT) 362 H 7-40 U/L Alkaline Phosphatase 416 H 46-116 U/L Total Protein 8.5 H 5.7-8.2 g/dL Albumin 4.4 3.2-4.8 g/dL Current Medications Medications (Trade) Dose Ordered Sig/Iveth Route Start Time Stop Time Status Last Admin Loperamide HCl (Imodium Capsule) 2 mg ONCE ONCE PO 10/17/24 11:15 10/17/24 11:16 DC 10/17/24 11:43 Time of 1ST Reevaluation: 12:05 Reevaluation 1ST: Unchanged Time of 2ND Reevaluation: 13:12 Reevaluation 2ND: pt eloped before kub Patient Education/Counseling: Diagnosis, Treatment Family Education/Counseling: No Family Present Additional Information Previous visits: 09/20/24 for N/V/D The following tests were ordered, and results were reviewed by me: XR GWENB, CBC, CMP Additional Information was gathered from interviewing the following independent historians: EMS I reviewed and agreed with the following test results read by other providers: BETSY SMITH I discussed treatment and results with medical personnel and: Patient Comprehensive systems review obtained and negative except for what is stated in the HPI. Departure 1 Departure Time of Disposition: 13:12 Impression: Primary Impression: Diarrhea Qualified Codes: R19.7 - Diarrhea, unspecified Additional Impression: HIV disease Disposition: LEFT AWOL/ELOPED Condition: Other (unknown) Critical Care Note Critical Care Time?: No Stability Stability form required: No Heart Score Heart Score: Heart Score Response (Comments) Value History N/A 0 EKG N/A 0 Age N/A 0 Risk Factors N/A 0 Troponin N/A 0 Total 0 I personally scribed for MARGAUX WYATT MD ([email or web address]) on 10/17/24 at 11:11. Electronically submitted by Nilesh Cuellar ([email or web address]). MARGAUX WYATT MD Oct 17, 2024 11:11
[2024-10-17 11:42] VITALS: BP 139/112; PULSE 107; RESP 18; O2SAT 97
[2024-10-17] MEDS: LOPERAMIDE HCL 2 MG CAP/TAB PO ONE (11:43)
[2024-10-17 11:50] LABS: White Blood Cell 8.3 10^3/uL (4.4-10.8)
[2024-10-17 11:51] LABS: Hematocrit 41.6 % (41.0-53.0); Hemoglobin 13.8 g/dL (13.5-17.5); Mean Corpuscular Hemoglobin 28.5 pg (28.0-32.0); Mean Corpuscular Hgb Conc. 33.2 g/dL (32.0-36.0); Platelet Count (auto) 484 10^3/uL (140-450); Red Blood Cells 4.84 10^6/uL (4.5-5.90); Red Cell Distribution Width 17.5 % (11.8-14.3)
[2024-10-17 11:55] LABS: Band Neutrophils % (manual) 0; Basophils % (manual) 0 (0.0-2.0); Blast Cells 0; Metamyelocytes % 0; Myelocytes % 0; Promyelocytes % 0; Reactive Lymphocytes 0
[2024-10-17 12:15] LABS: Albumin 4.4 g/dL (3.2-4.8); Anion Gap 8 (5-15); BUN/Creatinine Ratio 22.4 (10.0-20.0); Blood Urea Nitrogen 22 mg/dL (9-23); Calcium 9.7 mg/dL (8.7-10.4); Carbon Dioxide 26 mmol/L (20-31); Chloride 104 mmol/L (98-107); Potassium 3.8 mmol/L (3.5-5.1); Sodium 138 mmol/L (136-145)
[2024-10-17 12:16] LABS: Alanine Aminotransferase 362 U/L (7-40); Alkaline Phosphatase 416 U/L (46-116); Aspartate Aminotransferase 424 U/L (13-40); Bilirubin, Total 0.5 mg/dL (0.2-1.0); Glucose 114 mg/dL (74-106); Total Protein 8.5 g/dL (5.7-8.2)
[2024-10-17 13:05] LABS: Eosinophils % (manual) 11 (0-7); Lymphocytes % (manual) 21 (10.0-50.0); Monocytes % (manual) 4 (0-12); Platelet Estimate Increased
== END 2024-10-17 11:10 | disposition left against medical advice (07) ==
LOC: ER 11:00 → EDBD 11:00 → ER 11:10
DX: R19.7 Diarrhea, unspecified (principal); R11.2 Nausea with vomiting, unspecified; Z79.899 Other long term (current) drug therapy; Z98.890 Other specified postprocedural states
CPT/HCPCS: 36415; 80053; 85007; 85027

== ENCOUNTER 2024-10-27 16:48 | Emergency (ER) | payer OTHER ==
[~2024-10-27] VITALS: Ht 170.2 cm; Wt 61.5 kg
[2024-10-27 17:00] VITALS: BP 124/78; PULSE 114; RESP 17; TEMP 98.9; O2SAT 98
== END 2024-10-27 19:03 | disposition left against medical advice (07) ==
LOC: ER 16:48 → EDBD 16:48 → ER 19:03
DX: R06.02 Shortness of breath (principal); Z53.21 Procedure and treatment not carried out due to patient leaving prior to being seen by health care provider

== ENCOUNTER 2024-12-02 11:39 | Emergency (ER) | payer OTHER ==
[~2024-12-02] VITALS: Ht 170.2 cm; Wt 64.0 kg
--- NOTE | 2024-12-02 11:47 | ED.PDOC ---
History of Present Illness HPI Comments 34-year-old male with PMHx HIV brought in by EMS presents with a chief complaint of nausea, vomiting, and diarrhea. Patient mentions that all of his symptoms began this morning at 05:00. Patient denies any abdominal pain, rectal bleeding, or hematemesis. Patient is not actively vomiting at time of evaluation. Blood sugar was 103. Time Seen by MD: 11:43 Primary Care Provider: OOA Reviewed Notes: Nurses Notes, Medications, Allergies Allergies: Coded Allergies: NO KNOWN ALLERGIES (Unverified , 03/18/24) Home Meds Active Scripts Cephalexin Monohydrate (Cephalexin) 500 Mg Cap, 1 CAP PO TID for 10 Days, #30 CAP Prov:ZOE BRAXTON MD 07/01/24 Hydrocodone-Acetaminophen (Hydrocodone Bitartrate/AC 5-325 mg) 1 Tab Tab, 1 TAB PO Q6HP PRN, #30 TAB prn pain Prov:ZOE BRAXTON MD 07/01/24 Ibuprofen Micronized (Ibuprofen) 800 Mg Tab, 800 MG PO Q8HPRN PRN, #30 TAB prn pain Prov:ZOE BRAXTON MD 07/01/24 Information Source: Patient, Emergency Med Personnel Mode of Arrival: EMS Severity: Moderate Timing: Hours Duration: Since onset Prehospital treatment: Accucheck, Scallop Dredger Past Medical History PAST MEDICAL HISTORY: HIV Surgical History: Appendectomy Family History Family History: Reviewed,noncontributory to illness Social History Smoker: Non-Smoker Alcohol: Denies ETOH Use Drugs: Denies Drug Use Lives In: Home Constitutional: denies: chills, diaphoresis, fatigue, fever, malaise, sweats, weakness, others EENTM: denies: blurred vision, double vision, ear bleeding, ear discharge, ear drainage, ear pain, ear ringing, eye pain, eye redness, hearing loss, mouth pain, mouth swelling, nasal discharge, nose bleeding, nose congestion, nose pain, photophobia, tearing, throat pain, throat swelling, voice changes, others Respiratory: denies: cough, hemoptysis, orthopnea, SOB at rest, shortness of breath, SOB with excertion, stridor, wheezing, others Cardiovascular: denies: chest pain, dizzy spells, diaphoresis, Dyspnea on exertion, edema, irregular heart beat, left arm pain, lightheadedness, pal pitations, PND, syncope, others Gastrointestinal: reports: diarrhea, nausea, vomiting; denies: abdomen distended, abdominal pain, blood streaked bowels, constipated, dysphagia, difficulty swallowing, hematemesis, melena, poor appetite, poor fluid intake, rectal bleeding, rectal pain, others Genitourinary: denies: burning, dysuria, flank pain, frequency, hematuria, incontinence, penile discharge, penile sore, pain, testicle pain, testicle swelling, urgency, others Neurological: denies: dizziness, fainting, headache, left sided numbness, left sided weakness, numbness, paresthesia, pre-existing deficit, right sided numbness, right sided weakness, seizure, speech problems, tingling, tremors, weakness, others Musculoskeletal: denies: back pain, gout, joint pain, joint swelling, muscle pain, muscle stiffness, neck pain, others Integumetry: denies: bruises, change in color, change in hair/nails, dryness, laceration, lesions, lumps, rash, wounds, others Allergic/Immunocompromised: denies: Difficulty Healing, Frequent Infections, Hives, Itching, others Hematologic/Lymphatic: denies: anemia, blood clots, easy bleeding, easy bruising, swollen glands, others Endocrine: denies: excessive hunger, excessive sweating, excessive thirst, excessive urination, flushing, intolerance to cold, intolerance to heat, unexplained weight gain, unexplained weight loss, others Psychiatric: denies: anxiety, bipolar disorder, depression, hopeless, panic disorder, schizophrenia, sleepless, suicidal, others All Other Systems: Reviewed and Negative Physical Exam General Appearance: Mild Distress HEENT: Normal ENT Inspection, Pharynx Normal, TMs Normal Neck: Full Range of Motion, Non-Tender, Normal, Normal Inspection Respiratory: Chest Non-Tender, Lungs Clear, No Accessory Muscle Use, No Respiratory Distress, Normal Breath Sounds Cardiovascular: No Edema, No JVD, No Murmur, No Gallop, Normal Peripheral Pulses, Regular Rate/Rhythm Breast Exam: Deferred Gastrointestinal: No Organomegaly, Non Tender, No Pulsatile Mass, Normal Bowel Sounds, Soft Genitalia: Deferred Pelvic: Deferred Rectal: Deferred Extremities: No calf tenderness, Normal capillary refill, Normal inspection, Normal range of motion, Non-tender, No pedal edema Musculoskeletal : Apperance: Normal Neurologic: Alert, 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 Was a procedure done?: No Differential Dx Considerations may include: Generalized weakness, electrolyte imbalance, emesis, hyperemesis cannabinoid X-Ray, Labs, Meds, VS Vital Signs Date Time Temp Pulse Resp B/P (MAP) Pulse Ox O2 Delivery O2 Flow Rate FiO2 12/02/24 11:53 98.4 114 16 127/84 (98) 98 98.4 IV Hep-Lock was ordered It seems that the patient has eloped from the department's before any treatment can be given Time of 1ST Reevaluation: 12:13 Reevaluation 1ST: Unchanged Patient Education/Counseling: Diagnosis, Treatment, Need For Follow Up Family Education/Counseling: No Family Present Departure 1 Departure Time of Disposition: 14:22 Impression: Primary Impression: Gastroenteritis Disposition: 07 LEFT AWOL/ELOPED Condition: Fair Critical Care Note Critical Care Time?: No Stability Stability form required: No Heart Score Heart Score: Heart Score Response (Comments) Value History N/A 0 EKG N/A 0 Age N/A 0 Risk Factors N/A 0 Troponin N/A 0 Total 0 I personally scribed for SYLVIA CARLOS MD ([email or web address]) on 12/02/24 at 11:47. Electronically submitted by Shaquille Aguirre ([email or web address]). SYLVIA CARLOS MD Dec 02, 2024 11:47
[2024-12-02 11:53] VITALS: BP 127/84; PULSE 114; RESP 16; TEMP 98.4; O2SAT 98
[2024-12-02] MEDS ORDERED: PROCHLORPERAZINE EDISYLATE 5 MG/ML 2ML VIAL IV ONE (12:00)
[2024-12-02] MEDS ORDERED: PANTOPRAZOLE 40 MG/10 ML VIAL INJ IV ONE (12:00)
[2024-12-02] MEDS ORDERED: SODIUM CHLORIDE 0.9% 1,000 ML IV ONE (12:00)
== END 2024-12-02 14:18 | disposition left against medical advice (07) ==
LOC: EDBD 11:39 → ER 11:50
DX: K52.9 Noninfective gastroenteritis and colitis, unspecified (principal); Z90.49 Acquired absence of other specified parts of digestive tract; Z79.899 Other long term (current) drug therapy

== ENCOUNTER 2024-12-20 15:15 | Emergency (ER) | payer OTHER ==
[~2024-12-20] VITALS: Ht 170.2 cm; Wt 59.0 kg
--- NOTE | 2024-12-20 15:34 | ED.PDOC ---
Psychiatric HPI Comments 34 y.o male with PMHx of HIV and HTN, presents to the ED via EMS for an evaluation of SI. Patient report intentionally drinking half a bottle of hydrogen peroxide a couple hours ago in attempt to end his life, states he developed abdominal burning. Patient called his cousin who notified EMS and upon ED arrival, patient reports no longer feeling SI or HI. Patient has no history of previous SI or mental health illnesses. Patient is taking medications for HIV but none for HTN. Chief Complaint: Suicidal Time Seen by MD: 15:13 Primary Care Provider: UNKNOWN Reviewed Notes: Nurses Notes, Identity Management Consultant Notes, Medications, Allergies Information Source: Patient, Emergency Med Personnel Mode of Arrival: EMS Severity of Pain: Moderate Severity of Mental Status: Mild Severity of Symptoms: Moderate Timing: Hours Duration: Since onset Presents with: Unclear Thinking, Suicidal Ideation Ingestion: Intentional, Isopropanol Circumstance: Other Current substance abuse: Other Stressors: None History of: None Associated signs and symptoms: Abdominal Pain Past Medical History PAST MEDICAL HISTORY: HIV, HTN Surgical History: Appendectomy Surgical History (Other): right hip Family History Family History: Reviewed,noncontributory to illness Social History Smoker: Non-Smoker Alcohol: Denies ETOH Use Drugs: Denies Drug Use Lives In: Home Constitutional: denies: chills, diaphoresis, fatigue, fever, malaise, sweats, weakness, others EENTM: denies: blurred vision, double vision, ear bleeding, ear discharge, ear drainage, ear pain, ear ringing, eye pain, eye redness, hearing loss, mouth pain, mouth swelling, nasal discharge, nose bleeding, nose congestion, nose pain, photophobia, tearing, throat pain, throat swelling, voice changes, others Respiratory: denies: cough, hemoptysis, orthopnea, SOB at rest, shortness of breath, SOB with excertion, stridor, wheezing, others Cardiovascular: denies: chest pain, dizzy spells, diaphoresis, Dyspnea on exertion, edema, irregular heart beat, left arm pain, lightheadedness, palpitations, PND, syncope, others Gastrointestinal: reports: abdominal pain; denies: abdomen distended, blood streaked bowels, constipated, diarrhea, dysphagia, difficulty swallowing, hematemesis, melena, nausea, poor appetite, poor fluid intake, rectal bleeding, rectal pain, vomiting, others Genitourinary: denies: burning, dysuria, flank pain, frequency, hematuria, incontinence, penile discharge, penile sore, pain, testicle pain, testicle swelling, urgency, others Neurological: denies: dizziness, fainting, headache, left sided numbness, left sided weakness, numbness, paresthesia, pre-existing deficit, right sided numbness, right sided weakness, seizure, speech problems, tingling, tremors, weakness, others Musculoskeletal: denies: back pain, gout, joint pain, joint swelling, muscle pain, muscle stiffness, neck pain, others Integumetry: denies: bruises, change in color, change in hair/nails, dryness, laceration, lesions, lumps, rash, wounds, others Allergic/Immunocompromised: denies: Difficulty Healing, Frequent Infections, Hives, Itching, others Hematologic/Lymphatic: denies: anemia, blood clots, easy bleeding, easy bruising, swollen glands, others Endocrine: denies: excessive hunger, excessive sweating, excessive thirst, excessive urination, flushing, intolerance to cold, intolerance to heat, unexplained weight gain, unexplained weight loss, others Psychiatric: reports: suicidal; denies: anxiety, bipolar disorder, depression, hopeless, panic disorder, schizophrenia, sleepless, others Physical Exam General Appearance: Mild Distress HEENT: Normal ENT Inspection, Pharynx Normal, TMs Normal Neck: Full Range of Motion, Non-Tender, Normal, Normal Inspection Respiratory: Chest Non-Tender, Lungs Clear, No Accessory Muscle Use, No Re spiratory Distress, Normal Breath Sounds Cardiovascular: No Edema, No JVD, No Murmur, No Gallop, Normal Peripheral Pulses, Regular Rate/Rhythm Breast Exam: Deferred Gastrointestinal: No Organomegaly, Non Tender, No Pulsatile Mass, Normal Bowel Sounds, Soft Genitalia: Deferred Pelvic: Deferred Rectal: Deferred Extremities: No calf tenderness, Normal capillary refill, No pedal edema Musculoskeletal : Apperance: Normal Neurologic: Alert, inspector multifocal lens II-XII nml as Tested, Motor Weakness, No Sensory Deficits, Other (The patient is exhibiting signs of suicidal ideation with depression) Cerebellar Function: Normal Reflexes: Normal Skin: Dry, Normal Color, Warm Lymphatic: No Adenopathy Was a procedure done? Was a procedure done?: No Psych Differential Dx Psych. Differential Dx: Suicidal X-Ray, Labs, Meds, VS Vital Signs Date Time Temp Pulse Resp B/P (MAP) Pulse Ox O2 Delivery O2 Flow Rate FiO2 12/20/24 15:21 97.6 94 16 111/79 (90) 97 97.6 Lab Test 12/20/24 16:10 12/20/24 15:26 Range/Units Sodium Level 141 136-145 mmol/L Potassium Level 4.1 3.5-5.1 mmol/L Chloride Level 107 98-107 mmol/L Carbon Dioxide Level 27 20-31 mmol/L Anion Gap 7 5-15 Blood Urea Nitrogen 10 9-23 mg/dL Creatinine 0.84 0.700-1.30 mg/dL Glomerular Filtration Rate Calc 119 >90 mL/min BUN/Creatinine Ratio 11.9 10.0-20.0 Serum Glucose 78 74-106 mg/dL Calcium Level 9.2 8.7-10.4 mg/dL Total Bilirubin 0.3 0.2-1.0 mg/dL Aspartate Amino Transferase (AST) 28 13-40 U/L Alanine Aminotransferase (ALT) 32 7-40 U/L Alkaline Phosphatase 158 H 46-116 U/L Total Protein 7.4 5.7-8.2 g/dL Albumin 4.2 3.2-4.8 g/dL Salicylates Level < 3.0 -30 mg/dL Acetaminophen Level < 2.0 L 10.0-20.0 UG/ML Plasma/Serum Blood Alcohol < 3.0 <10 mg/dL Urine Opiates Screen Neg NEGATIVE Urine Fentanyl Screen Neg NEGATIVE Urine Barbiturates Screen Neg NEGATIVE Urine Phencyclidine Screen Neg NEGATIVE Urine Amphetamines Screen Neg NEGATIVE Urine Benzodiazepines Screen Neg NEGATIVE Urine Cocaine Screen Neg NEGATIVE Urine Cannabinoids Screen Neg NEGATIVE IV Hep-Lock was established We did call poison control and did order the appropriate tests The urine tox is negative The alcohol level is negative The chemistry panel is within normal range The salicylate level and acetaminophen level are negative The liver enzymes are negative At this time, the patient is being medically cleared We are putting the patient up for a telemedicine psychiatry consult The patient will be signed out to Dr. Martinez Time of 1ST Reevaluation: 15:30 Reevaluation 1ST: Unchanged Patient Education/Counseling: Diagnosis, Treatment, Prognosis Family Education/Counseling: No Family Present Departure 1 Departure Time of Disposition: 21:23 Impression: Primary Impression: Ingestion of toxic substance Additional Impression: Suicidal ideation Disposition: 30 STILL A PATIENT Condition: Fair Critical Care Note Critical Care Time?: No Stability Stability form required: No I personally scribed for SYLVIA CARLOS MD ([email or web address]) on 12/20/24 at 15:34. Electronically submitted by Nikki Mcneil ([facility]). SYLVIA CARLOS MD Dec 20, 2024 15:34
[2024-12-20 16:20] LABS: Amphetamine Screen, Urine Neg (NEGATIVE); Barbiturate Scree,Urine Neg (NEGATIVE); Benzodiazephine Screen, Urine Neg (NEGATIVE); Cannabinoid Screen, Urine Neg (NEGATIVE); Cocaine Screen, Urine Neg (NEGATIVE); Opiate Scree,Urine Neg (NEGATIVE); Phencyclidine Screen, Urine Neg (NEGATIVE)
[2024-12-20 16:59] LABS: Alanine Aminotransferase 32 U/L (7-40); Albumin 4.2 g/dL (3.2-4.8); Anion Gap 7 (5-15); BUN/Creatinine Ratio 11.9 (10.0-20.0); Bilirubin, Total 0.3 mg/dL (0.2-1.0); Blood Urea Nitrogen 10 mg/dL (9-23); Calcium 9.2 mg/dL (8.7-10.4); Carbon Dioxide 27 mmol/L (20-31); Glucose 78 mg/dL (74-106); Potassium 4.1 mmol/L (3.5-5.1); Sodium 141 mmol/L (136-145); Total Protein 7.4 g/dL (5.7-8.2)
[2024-12-20 17:00] LABS: Alkaline Phosphatase 158 U/L (46-116); Chloride 107 mmol/L (98-107)
[2024-12-20 17:10] LABS: Acetaminophen < 2.0 UG/ML (10.0-20.0); Salicylate < 3.0 mg/dL (-30)
[2024-12-21] MEDS: PANTOPRAZOLE 40 MG/10 ML VIAL INJ IV ONE (07:32)
--- NOTE | 2024-12-21 08:13 | DVHINCON2 ---
Date of Service if different f: Dec 21, 2024 Time of Service: 07:47 Consultation ([facility]) Consulting Physician: ROYA BOYD MD Labs Laboratory Tests Test 12/20/24 15:26 12/20/24 16:10 Urine Opiates Screen Neg (NEGATIVE) Urine Fentanyl Screen Neg (NEGATIVE) Urine Barbiturates Screen Neg (NEGATIVE) Urine Phencyclidine Screen Neg (NEGATIVE) Urine Amphetamines Screen Neg (NEGATIVE) Urine Benzodiazepines Screen Neg (NEGATIVE) Urine Cocaine Screen Neg (NEGATIVE) Urine Cannabinoids Screen Neg (NEGATIVE) Sodium Level 141 mmol/L (136-145) Potassium Level 4.1 mmol/L (3.5-5.1) Chloride Level 107 mmol/L (98-107) Carbon Dioxide Level 27 mmol/L (20-31) Anion Gap 7 (5-15) Blood Urea Nitrogen 10 mg/dL (9-23) Creatinine 0.84 mg/dL (0.700-1.30) Glomerular Filtration Rate Calc 119 mL/min (>90) BUN/Creatinine Ratio 11.9 (10.0-20.0) Serum Glucose 78 mg/dL (74-106) Calcium Level 9.2 mg/dL (8.7-10.4) Total Bilirubin 0.3 mg/dL (0.2-1.0) Aspartate Amino Transf (AST/SGOT) 28 U/L (13-40) Alanine Aminotransferase (ALT/SGPT) 32 U/L (7-40) Alkaline Phosphatase 158 U/L (46-116) Total Protein 7.4 g/dL (5.7-8.2) Albumin 4.2 g/dL (3.2-4.8) Salicylates Level < 3.0 mg/dL (-30) Acetaminophen Level < 2.0 UG/ML (10.0-20.0) Plasma/Serum Blood Alcohol < 3.0 mg/dL (<10) Appearance: Stated age Psychomotor activity: WNL, Calm Behavioral: Cooperative Eye contact: Appropriate Speech: WNL Affect: Appropriate, Mood Congruent Mood: Euthymic Thought processes: Linear/Goal-directed Suicidal ideations: Absent Homicidal ideations: Absent Orientation: Person, Place, Time, Situation Memory intact: Recent Intellect: Average Abstractability: WNL Concentration: Adequate Attention: Adequate Judgement: WNL Insight: Good Vitals Vital Signs Date Time Temp Pulse Resp B/P (MAP) Pulse Ox O2 Delivery O2 Flow Rate FiO2 12/20/24 15:21 97.6 94 16 111/79 (90) 97 97.6 Treatment plan discussed: With staff Medication adjusted: Yes Labs ordered: No Psychotherapy provided: No Type: Voluntary History of Present Illness Reason for Consult : psychiatric evaluation PER ED PHYSICIAN NOTE: 34 y.o male with PMHx of HIV and HTN, presents to the ED via EMS for an evaluation of SI. Patient report intentionally drinking half a bottle of hydrogen peroxide a couple hours ago in attempt to end his life, states he developed abdominal burning. Patient called his cousin who notified EMS and upon ED arrival, patient reports no longer feeling SI or HI. Patient has no history of previous SI or mental health illnesses. PSYCHIATRIST HPI: The patient was seen and evaluated at [facility] ED via telepsychiatry platform. 34 yr old male reported "I'm alright." He stated he was having suicidal thoughts yesterday morning due to having insomnia for the past five days. He stated he was sleeping about 2-3 hrs a night. He said he felt pretty down yesterday morning due to not sleeping for a few days, so drank some hydrogen peroxide to put him to sleep (he had it on his shelf in the restroom). He noted he has had difficulty sleeping over the past month. He denied any past issues with sleep. He said bad dreams are affecting his sleep. He said the dreams are not about any trauma but they still wake him up sometimes. He said his mood is good today, but he has been feeling "groggy from not sleeping." He has taken melatonin to help with sleep but hasn't taken it in five days. He reported he feel comfortable returning home and would like to have something to help him sleep. He denied having suicidal or homicidal ideation, plan or intent. He denied having auditory or visual hallucinations. Past Psychiatric History : No h/o hospitalization, treatment or suicide attempts. Past Medical History: HIV positive Current Psychotropic Medications: biktarvy NKDA Substance use: Denied alcohol and other substance use. Social History : Lives in [place] with cousin. Never , no children. Graduated HS. Works for [employer]. Diagnosis: Insomnia Formulation: This 34 yr old male appears to suffer from insomnia which likely led to him feeling hopeless and suicidal. He is no longer suicidal and does not warrant psychiatric hospitalization. He would likely benefit from being on a sleep medication to help regulate his sleep. Plan: 1. Safety. The patient is psychologically cleared for discharge. 2. Legal-voluntary 3. Medication: recommend starting Trazodone 50 mg qhs prn insomnia. 4. Contact psychiatry if further evaluation or follow up is desired. 5. case discussed with ED Physician Dr Bustamante. Assessment/Diagnosis/Plan Reviewed: Labs, Medications, Previous Orders ROYA BOYD MD Dec 21, 2024 07:48
[2024-12-21 08:15] VITALS: BP 130/85; PULSE 77; RESP 16; TEMP 98.9; O2SAT 99
== END 2024-12-21 10:03 | disposition home or self-care (01) ==
LOC: EDBD 15:15 → ER 15:17
DX: T65.891A Toxic effect of other specified substances, accidental (unintentional), initial encounter (principal); R45.851 Suicidal ideations; I10 Essential (primary) hypertension; G47.00 Insomnia, unspecified; Z21 Asymptomatic human immunodeficiency virus [HIV] infection status; Z00.8 Encounter for other general examination; Z90.49 Acquired absence of other specified parts of digestive tract; Y92.89 Other specified places as the place of occurrence of the external cause; Z79.899 Other long term (current) drug therapy
CPT/HCPCS: 36415; 80053; 80307; 80320; 80329

== ENCOUNTER 2025-01-16 09:43 | Emergency (ER) | payer OTHER ==
[~2025-01-16] VITALS: Ht 170.2 cm; Wt 61.1 kg
--- NOTE | 2025-01-16 10:05 | ED.PDOC ---
SOB-HPI HPI Comments 34 y/o M, BIBA, with PMHx of HTN and HIV presents to the ED for CC of shortness of breath. EMS reports, patient is coming from side of road where he c/o shortness of breath while walking. EMS relays, patient comments on recently being Dx: with a upper respiratory infection however, is currently not taking an antibiotics.At this time patient is stating at 97% on R.A. Patient denies fever, chills, chest pain, cough, fatigue, or weakness. No other associated symptoms, modifiers, recent injuries or sick contacts present at this time. Chief Complaint: Shortness of Breath Time Seen by MD: 10:00 Primary Care Provider: HOA Garzon notes: Nurses Notes, Medications, Allergies Information Source: Patient Mode of Arrival: EMS Severity: Moderate Timing: Minutes Duration: Since onset Context: With Light Exertion PE Risk Factors: None History of: Recent URI Prehospital treatment: None Modifying Factors: Nothing Associated Signs and Symptoms: None Past Medical History PAST MEDICAL HISTORY: HIV, HTN Surgical History: Appendectomy Family History Family History: Reviewed,noncontributory to illness Social History Smoker: Non-Smoker Alcohol: Denies ETOH Use Drugs: Denies Drug Use Lives In: Home Constitutional: denies: chills, diaphoresis, fatigue, fever, malaise, sweats, weakness, others EENTM: denies: blurred vision, double vision, ear bleeding, ear discharge, ear drainage, ear pain, ear ringing, eye pain, eye redness, hearing loss, mouth pain, mouth swelling, nasal discharge, nose bleeding, nose congestion, nose pain, photophobia, tearing, throat pain, throat swelling, voice changes, others Respiratory: reports: shortness of breath; denies: cough, hemoptysis, orthopnea, SOB at rest, SOB with excertion, stridor, wheezing, others Cardiovascular: denies: chest pain, dizzy spells, diaphoresis, Dyspnea on exertion, edema, irregular heart beat, left arm pain, lightheadedness, palpi tations, PND, syncope, others Gastrointestinal: denies: abdomen distended, abdominal pain, blood streaked bowels, constipated, diarrhea, dysphagia, difficulty swallowing, hematemesis, melena, nausea, poor appetite, poor fluid intake, rectal bleeding, rectal pain, vomiting, others Genitourinary: denies: burning, dysuria, flank pain, frequency, hematuria, incontinence, penile discharge, penile sore, pain, testicle pain, testicle swelling, urgency, others Neurological: denies: dizziness, fainting, headache, left sided numbness, left sided weakness, numbness, paresthesia, pre-existing deficit, right sided numbness, right sided weakness, seizure, speech problems, tingling, tremors, weakness, others Musculoskeletal: denies: back pain, gout, joint pain, joint swelling, muscle pain, muscle stiffness, neck pain, others Integumetry: denies: bruises, change in color, change in hair/nails, dryness, laceration, lesions, lumps, rash, wounds, others Allergic/Immunocompromised: denies: Difficulty Healing, Frequent Infections, Hives, Itching, others Hematologic/Lymphatic: denies: anemia, blood clots, easy bleeding, easy bruis ing, swollen glands, others Endocrine: denies: excessive hunger, excessive sweating, excessive thirst, exc essive urination, flushing, intolerance to cold, intolerance to heat, unexplained weight gain, unexplained weight loss, others Psychiatric: denies: anxiety, bipolar disorder, depression, hopeless, panic disorder, schizophrenia, sleepless, suicidal, others All Other Systems: Reviewed and Negative Physical Exam General Appearance: Moderate Distress HEENT: Normal ENT Inspection, Pharynx Normal, TMs Normal Neck: Full Range of Motion, Non-Tender, Normal, Normal Inspection Respiratory: Chest Non-Tender, Lungs Clear, No Accessory Muscle Use, No Respiratory Distress, Normal Breath Sounds Cardiovascular: No Edema, No JVD, No Murmur, No Gallop, Normal Peripheral Pulses, Regular Rate/Rhythm Breast Exam: Deferred Gastrointestinal: No Organomegaly, Non Tender, No Pulsatile Mass, Normal Bowel Sounds, Soft Genitalia: Deferred Pelvic: Deferred Rectal: Deferred Extremities: No calf tenderness, Normal capillary refill, Normal inspection, Normal range of motion, Non-tender, No pedal edema Musculoskeletal : Apperance: Normal 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 Was a procedure done?: No Differential Dx Differential Diagnosis: Anxiety, Asthma, Bronchitis, CHF, COPD, Pneumonia, Sinusitis, Pharyngitis, URI X-Ray, Labs, Meds, VS Vital Signs Date Time Temp Pulse Resp B/P (MAP) Pulse Ox O2 Delivery O2 Flow Rate FiO2 01/16/25 10:10 99 17 97 Room Air 01/16/25 10:10 97.7 98 17 118/74 (89) 97 97.7 01/16/25 10:02 103 01/16/25 09:50 97.5 105 18 116/75 (89) 98 97.5 Lab Test 01/16/25 10:47 01/16/25 10:02 Range/Units D-Dimer, Quantitative 0.36 0.0-0.49 mg/L FEU White Blood Count 5.7 4.4-10.8 10^3/uL Red Blood Count 4.45 L 4.5-5.90 10^6/uL Hemoglobin 12.8 L 13.5-17.5 g/dL Hematocrit 39.8 L 41.0-53.0 % Mean Corpuscular Volume 89.5 80.0-100.0 fL Mean Corpuscular Hemoglobin 28.9 28.0-32.0 pg Mean Corpuscular Hemoglobin Concent 32.3 32.0-36.0 g/dL Red Cell Distribution Width 14.6 H 11.8-14.3 % Platelet Count 284 140-450 10^3/uL Mean Platelet Volume 8.2 6.9-10.8 fL Neutrophils (%) (Auto) 62.1 37.0-80.0 % Lymphocytes (%) (Auto) 15.1 10.0-50.0 % Monocytes (%) (Auto) 10.0 0.0-12.0 % Eosinophils (%) (Auto) 12.4 H 0.0-7.0 % Basophils (%) (Auto) 0.4 0.0-2.0 % Neutrophils # (Auto) 3.5 1.6-8.6 10 ^3/uL Lymphocytes # (Auto) 0.9 0.4-5.4 10 ^3/uL Monocytes # (Auto) 0.6 0-1.3 10 ^3/uL Eosinophils # (Auto) 0.7 0-0.8 10 ^3/uL Basophils # (Auto) 0 0-0.2 10 ^3/uL Nucleated Red Blood Cells 0.2 % Sodium Level 142 136-145 mmol/L Potassium Level 3.6 3.5-5.1 mmol/L Chloride Level 108 H 98-107 mmol/L Carbon Dioxide Level 25 20-31 mmol/L Anion Gap 9 5-15 Blood Urea Nitrogen 14 9-23 mg/dL Creatinine 0.86 0.700-1.30 mg/dL Glomerular Filtration Rate Calc 118 >90 mL/min BUN/Creatinine Ratio 16.3 10.0-20.0 Serum Glucose 85 74-106 mg/dL Calcium Level 9.5 8.7-10.4 mg/dL [place] [id number] Ph: [phone] DIAGNOSTIC IMAGING Diagnostic Imaging Report : [id number] Signed PATIENT: JOSEFA STEWART ACCT: [id number] UNIT: [id number] : 1990 LOC: ER ROOM / BED: / AGE / SEX: 34 / M ADM STATUS: REG ER SERVICE [id number] ORDERING PHYSICIAN: RODO GREEN MD PROCEDURE(s): CXRP - CHEST PORTABLE REASON: sob ORDER NUMBER(s): [id number], ACCESSION NUMBER(s): [id number] XY CHEST PORTABLE, HISTORY: sob COMPARISON: XY CHEST PORTABLE on DOS: 03/18/24 XY CHEST PORTABLE on DOS: 03/18/24 TECHNICAL DATA: 1 view of the chest was obtained. FINDINGS: Lines and tubes: None Cardiomediastinal silhouette: normal Pulmonary vasculature: normal Lung expansion: normal Lung airspace: normal Lung interstitium: normal Pleura: normal Pneumothorax: no Bones: Unremarkable Other: no IMPRESSION: No acute intrathoracic abnormality. ATED BY: ALEX ABDUL MD DICTATED DATE/TIME: 01/16/251026 SIGNED BY: ALEX ABDUL MD SIGNED DATE/TIME: 01/16/25 102 CC: Patient alert. Complaining of shortness a breath. Vitals stable. Answering questions. Chest x-ray reviewed does not show any acute changes. No leg swelling. Possible pneumonitis pain Was given prescription of amoxicillin antibiotic. Explained to the patient. Was told to follow up with his primary care physician. Was told to come back if there is any problem. Time of 1ST Reevaluation: 10:30 Reevaluation 1ST: Improved Patient Education/Counseling: Diagnosis, Treatment Family Education/Counseling: No Family Present SEPSIS Sepsis Screen Physician Orders Chest Portable (01/16/25 09:53) Vital Signs Date Time Temp Pulse Resp B/P (MAP) Pulse Ox O2 Delivery O2 Flow Rate FiO2 01/16/25 10:10 99 17 97 Room Air 01/16/25 10:10 97.7 98 17 118/74 (89) 97 97.7 01/16/25 10:02 103 01/16/25 09:50 97.5 105 18 116/75 (89) 98 97.5 Laboratory Tests Test 01/16/25 10:02 White Blood Count 5.7 10^3/uL (4.4-10.8) Departure 1 Departure Time of Disposition: 11:29 Impression: Primary Impression: Pneumonitis Disposition: 01 HOME / SELF CARE / HOMELESS Condition: Good e-Prescriptions Amoxicillin Trihydrate (Amoxicillin) 500 Mg Tab 1 TAB PO TID for 5 Days, #15 TAB Prov: RODO GREEN MD 01/16/25 Discharged With: Self Critical Care Note Critical Care Time?: No Stability Stability form required: No Heart Score Heart Score: Heart Score Response (Comments) Value History N/A 0 EKG N/A 0 Age N/A 0 Risk Factors N/A 0 Troponin N/A 0 Total 0 I personally scribed for RODO GREEN MD ([email or web address]) on 01/16/25 at 10:05. Electronically submitted by Christi Chilel ([email or web address]). I personally scribed for RODO GREEN MD ([email or web address]) on 01/16/25 at 10:06. Electronically submitted by Christi Chilel ([email or web address]). I personally scribed for RODO GREEN MD ([email or web address]) on 01/16/25 at 10:48. Electronically submitted by Christi Chilel ([email or web address]). RODO GREEN MD Jan 16, 2025 10:05
[2025-01-16 10:10] VITALS: BP 118/74; PULSE 99; RESP 17; TEMP 97.7; O2SAT 97
[2025-01-16 10:14] LABS: Hematocrit 39.8 % (41.0-53.0); Hemoglobin 12.8 g/dL (13.5-17.5); Mean Corpuscular Hemoglobin 28.9 pg (28.0-32.0); Mean Corpuscular Volume 89.5 fL (80.0-100.0); Nucleated Red Blood Cells % 0.2 %
[2025-01-16 10:23] LABS: Potassium 3.6 mmol/L (3.5-5.1); Sodium 142 mmol/L (136-145)
[2025-01-16 10:24] LABS: Chloride 108 mmol/L (98-107)
[2025-01-16 10:25] LABS: Calcium 9.5 mg/dL (8.7-10.4)
[2025-01-16 10:30] LABS: BUN/Creatinine Ratio 16.3 (10.0-20.0); Blood Urea Nitrogen 14 mg/dL (9-23); Glucose 85 mg/dL (74-106)
--- NOTE | 2025-01-16 10:30 | DVH ---
XY CHEST PORTABLE, HISTORY: sob COMPARISON: XY CHEST PORTABLE on DOS: 03/18/24 XY CHEST PORTABLE on DOS: 03/18/24 TECHNICAL DATA: 1 view of the chest was obtained. FINDINGS: Lines and tubes: None Cardiomediastinal silhouette: normal Pulmonary vasculature: normal Lung expansion: normal Lung airspace: normal Lung interstitium: normal Pleura: normal Pneumothorax: no Bones: Unremarkable Other: no IMPRESSION: No acute intrathoracic abnormality.
[2025-01-16 10:49] LABS: Anion Gap 9 (5-15); Carbon Dioxide 25 mmol/L (20-31)
--- NOTE | 2025-01-16 10:56 | ECG ---
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
[2025-01-16] MEDS ORDERED: AMOX500T3 PO (11:30)
== END 2025-01-16 11:39 | disposition home or self-care (01) ==
LOC: ER 09:43 → EDBD 09:43 → ER 11:39
DX: J98.4 Other disorders of lung (principal); I10 Essential (primary) hypertension; Z90.49 Acquired absence of other specified parts of digestive tract
CPT/HCPCS: 36415; 71045; 80048; 85025; 85379; 93005